=== PATIENT | female | born 1955 | race Caucasian/White ===

== ENCOUNTER 2023-02-24 12:44 | Inpatient (IN) | payer OTHER ==
[2023-02-24 15:48] VITALS: BMI 25.0
[2023-02-24] MEDS ORDERED: guaiFENesin 600 MG TABLET.ER (FP) PO PRN (16:34)
[2023-02-24] MEDS ORDERED: NALOXONE HCL 0.4 MG/ML VIAL IM PRN (16:34)
[2023-02-24] MEDS ORDERED: BENZOCAINE/MENTHOL (CHLORASEPTIC ) LOZENGE MM PRN (16:34)
[2023-02-24] MEDS ORDERED: MAG HYDROX/AL HYDROX/SIMETH 30 ML UNIT-DOSE CUP PO PRN (16:34)
[2023-02-24] MEDS ORDERED: NALOXONE HCL (KLOXXADO) 8 MG SPRAY NS PRN (16:34)
[2023-02-24] MEDS ORDERED: POLYETHYLENE GLYCOL (HEALTHYLAX) 3350 17 GM PACKET PO PRN (16:34)
[2023-02-24] MEDS ORDERED: ACETAMINOPHEN 325 MG TABLET (FP) PO PRN (16:34)
[2023-02-24] MEDS ORDERED: AMMONIUM LACTATE 12% LOTION 225 GM BOTTLE TP PRN (16:34)
[2023-02-24] MEDS ORDERED: COLLOIDAL OATMEAL 1 BAR EACH TP PRN (16:34)
[2023-02-24] MEDS ORDERED: BENZONATATE 200 MG CAPSULE PO PRN (16:34)
[2023-02-24] MEDS ORDERED: MAGNESIUM HYDROX 2400MG/30ML ORAL SUSPENSION 30 ML CUP PO PRN (16:34)
[2023-02-24] MEDS ORDERED: IBUPROFEN 400 MG TABLET (FP) PO PRN (16:34)
[2023-02-24] MEDS ORDERED: LOPERAMIDE HCL 2 MG CAPSULE PO PRN (16:34)
[2023-02-24] MEDS ORDERED: TUBERCULIN PPD 5 TU/0.1ML VIAL ID ONE (17:33)
[2023-02-24] MEDS: PRENATAL VITAMINS W/ FOLIC ACID TABLET (FP) PO SCH (17:43)
[2023-02-24] MEDS ORDERED: TUBERCULIN PPD 5 TU/0.1ML SYRINGE (IN PATIENT USE ONLY) ID ONE (18:00)
[2023-02-24] MEDS: amLODIPine BESYLATE 10 MG TABLET (FP) PO SCH (19:41)
[2023-02-24] MEDS: hydrOXYzine PAMOATE 25 MG CAPSULE (FP) PO PRN (19:41)
[2023-02-24] MEDS: THIAMINE HCL 100 MG TABLET (FP) PO SCH (21:37)
[2023-02-24] MEDS ORDERED: MELATONIN 5 MG TABLETS PO SCH (22:00)
[2023-02-25] MEDS: amLODIPine BESYLATE 10 MG TABLET (FP) PO SCH (09:54)
[2023-02-25] MEDS: SERTRALINE HCL 50 MG TABLET (FP) PO SCH (09:54)
[2023-02-25] MEDS: PRENATAL VITAMINS W/ FOLIC ACID TABLET (FP) PO SCH (09:54)
[2023-02-25 15:30] LABS: HEMATOCRIT 38.8 % (32.4-45.2); HEMOGLOBIN 12.8 GM/dL (10.7-15.3); MCH 32.3 pg (25.7-33.7); MEAN CELL VOLUME 98.1 fl (80-96); MEAN PLT VOLUME 9.9 fl (7.5-11.1); PLATELET COUNT 392 10^3/uL (134-434); RBC 3.95 M/mm3 (3.60-5.2); RDW 13.7 % (11.6-15.6); WHITE BLOOD COUNT 9.5 K/mm3 (4.0-10.0)
[2023-02-25 15:38] LABS: EPI CELLS 22 /uL (0-25.1); HYALINE CASTS 3 /uL (0-3.1); PH,URINE 7.5 (5.0-8.0); URINE APPEARANCE CLEAR; URINE BACTERIA 62 /uL (0-1359); URINE BILIRUBIN NEGATIVE (NEGATIVE); URINE COLOR YELLOW; URINE GLUCOSE (UA) NEGATIVE (NEGATIVE); URINE KETONE TRACE (NEGATIVE); URINE LEUK ESTERASE 1+ (NEGATIVE); URINE NITRITE NEGATIVE (NEGATIVE); URINE PROTEIN 1+ (NEGATIVE); URINE RBC 4 /uL (0-23.9); URINE UROBILINOGEN 0.2 mg/dL (0.2-1.0); URINE WBC 19 /uL (0-25.8)
[2023-02-25 15:50] LABS: POTASSIUM 3.8 mmol/L (3.5-5.1)
[2023-02-25 15:51] LABS: CALCIUM 9.9 mg/dL (8.5-10.1)
[2023-02-25 15:52] LABS: ALBUMIN 3.8 g/dl (3.4-5.0); BLOOD UREA NITROGEN 6.8 mg/dL (7-18)
[2023-02-25 15:55] LABS: CREATININE 0.6 mg/dL (0.55-1.3)
[2023-02-25 15:56] LABS: BILIRUBIN,TOTAL 0.4 mg/dL (0.2-1); TOT PROT 7.6 g/dl (6.4-8.2)
[2023-02-25 16:16] LABS: SYPHILIS W/ RPR CONF NON-REACTIVE (NONREACTIVE)
[2023-02-25] MEDS: clonazePAM 0.5 MG ODT TABLETS SL SCH (21:47)
[2023-02-25] MEDS: THIAMINE HCL 100 MG TABLET (FP) PO SCH (21:47)
[2023-02-25] MEDS: hydrOXYzine PAMOATE 25 MG CAPSULE (FP) PO PRN (21:48)
[2023-02-25] MEDS: SUVOREXANT 10 MG TABLET PO PRN (21:49)
[2023-02-25] MEDS ORDERED: ESZOPICLONE 3 MG PO SCH (22:00)
[2023-02-26] MEDS: SERTRALINE HCL 50 MG TABLET (FP) PO SCH (09:46)
[2023-02-26] MEDS: PRENATAL VITAMINS W/ FOLIC ACID TABLET (FP) PO SCH (09:46)
[2023-02-26] MEDS: amLODIPine BESYLATE 10 MG TABLET (FP) PO SCH (09:46)
[2023-02-26] MEDS: hydrOXYzine PAMOATE 25 MG CAPSULE (FP) PO PRN ×2 (09:47→17:23)
[2023-02-26] MEDS: clonazePAM 0.5 MG ODT TABLETS SL SCH (21:31)
[2023-02-26] MEDS: THIAMINE HCL 100 MG TABLET (FP) PO SCH (21:32)
[2023-02-26] MEDS: MELATONIN 5 MG TABLETS PO SCH (21:33)
[2023-02-26] MEDS: SUVOREXANT 10 MG TABLET PO PRN (21:34)
[2023-02-27] MEDS: hydrOXYzine PAMOATE 25 MG CAPSULE (FP) PO PRN ×2 (09:54→16:36)
[2023-02-27] MEDS: PRENATAL VITAMINS W/ FOLIC ACID TABLET (FP) PO SCH (09:54)
[2023-02-27] MEDS: SERTRALINE HCL 50 MG TABLET (FP) PO SCH (09:54)
[2023-02-27] MEDS: amLODIPine BESYLATE 10 MG TABLET (FP) PO SCH (09:54)
[2023-02-27] MEDS: MELATONIN 5 MG TABLETS PO SCH (21:16)
[2023-02-27] MEDS: THIAMINE HCL 100 MG TABLET (FP) PO SCH (21:16)
[2023-02-27] MEDS: clonazePAM 0.5 MG ODT TABLETS SL SCH (21:16)
[2023-02-27] MEDS: SUVOREXANT 10 MG TABLET PO PRN (21:17)
[2023-02-28] MEDS: hydrOXYzine PAMOATE 25 MG CAPSULE (FP) PO PRN ×2 (01:17→14:23)
[2023-02-28] MEDS: PRENATAL VITAMINS W/ FOLIC ACID TABLET (FP) PO SCH (09:51)
[2023-02-28] MEDS: amLODIPine BESYLATE 10 MG TABLET (FP) PO SCH (09:51)
[2023-02-28] MEDS: SERTRALINE HCL 50 MG TABLET (FP) PO SCH (09:51)
[2023-02-28] MEDS: THIAMINE HCL 100 MG TABLET (FP) PO SCH (21:31)
[2023-02-28] MEDS: MELATONIN 5 MG TABLETS PO SCH (21:31)
[2023-02-28] MEDS: clonazePAM 0.5 MG ODT TABLETS SL SCH (21:31)
[2023-02-28] MEDS: SUVOREXANT 10 MG TABLET PO PRN (21:33)
[2023-02-28] MEDS: SUVOREXANT 15 MG TABLET PO PRN (21:33)
[2023-03-01] MEDS: hydrOXYzine PAMOATE 25 MG CAPSULE (FP) PO PRN ×3 (06:26→22:16)
[2023-03-01] MEDS: PRENATAL VITAMINS W/ FOLIC ACID TABLET (FP) PO SCH (10:28)
[2023-03-01] MEDS: amLODIPine BESYLATE 10 MG TABLET (FP) PO SCH (10:28)
[2023-03-01] MEDS: SERTRALINE HCL 50 MG TABLET (FP) PO SCH (10:28)
[2023-03-01] MEDS: SUVOREXANT 15 MG TABLET PO PRN (22:15)
[2023-03-01] MEDS: MELATONIN 5 MG TABLETS PO SCH (22:16)
[2023-03-01] MEDS: THIAMINE HCL 100 MG TABLET (FP) PO SCH (22:16)
[2023-03-01] MEDS: clonazePAM 0.5 MG ODT TABLETS SL SCH (22:16)
[2023-03-01] MEDS: IBUPROFEN 600 MG TABLET (FP) PO PRN (22:16)
[2023-03-02] MEDS: hydrOXYzine PAMOATE 25 MG CAPSULE (FP) PO PRN ×3 (06:20→22:14)
[2023-03-02] MEDS: SERTRALINE HCL 50 MG TABLET (FP) PO SCH (10:01)
[2023-03-02] MEDS: PRENATAL VITAMINS W/ FOLIC ACID TABLET (FP) PO SCH (10:01)
[2023-03-02] MEDS: amLODIPine BESYLATE 10 MG TABLET (FP) PO SCH (10:02)
[2023-03-02] MEDS: METHYL SALICYLATE/MENTHOL OINT 30 GM TUBE TP SCH ×2 (12:54→22:14)
[2023-03-02] MEDS: LIDOCAINE 5% TOPICAL PATCH TP SCH (12:55)
[2023-03-02] MEDS: IBUPROFEN 600 MG TABLET (FP) PO PRN (18:49)
[2023-03-02] MEDS: clonazePAM 0.5 MG ODT TABLETS SL SCH (22:13)
[2023-03-02] MEDS: THIAMINE HCL 100 MG TABLET (FP) PO SCH (22:13)
[2023-03-02] MEDS: MELATONIN 5 MG TABLETS PO SCH (22:13)
[2023-03-02] MEDS: LIDOCAINE PATCH REMOVAL MC SCH (22:14)
[2023-03-02] MEDS: SUVOREXANT 15 MG TABLET PO PRN (22:15)
[2023-03-03] MEDS: amLODIPine BESYLATE 10 MG TABLET (FP) PO SCH (09:51)
[2023-03-03] MEDS: PRENATAL VITAMINS W/ FOLIC ACID TABLET (FP) PO SCH (09:51)
[2023-03-03] MEDS: METHYL SALICYLATE/MENTHOL OINT 30 GM TUBE TP SCH ×2 (09:51→21:30)
[2023-03-03] MEDS: SERTRALINE HCL 50 MG TABLET (FP) PO SCH (09:51)
[2023-03-03] MEDS: LIDOCAINE 5% TOPICAL PATCH TP SCH (09:51)
[2023-03-03] MEDS: LIDOCAINE PATCH REMOVAL MC SCH (21:26)
[2023-03-03] MEDS: MELATONIN 5 MG TABLETS PO SCH (21:29)
[2023-03-03] MEDS: hydrOXYzine PAMOATE 25 MG CAPSULE (FP) PO PRN (21:29)
[2023-03-03] MEDS: THIAMINE HCL 100 MG TABLET (FP) PO SCH (21:30)
[2023-03-03] MEDS: clonazePAM 0.5 MG ODT TABLETS SL SCH (21:30)
[2023-03-03] MEDS ORDERED: SUVOREXANT 15 MG TABLET PO PRN (22:00)
[2023-03-04] MEDS ORDERED: hydrOXYzine PAMOATE 50 MG CAPSULE (FP) PO PRN (08:31)
[2023-03-04] MEDS ORDERED: hydrOXYzine PAMOATE 25 MG CAPSULE (FP) PO PRN (08:31)
[2023-03-04] MEDS: PRENATAL VITAMINS W/ FOLIC ACID TABLET (FP) PO SCH (09:43)
[2023-03-04] MEDS: METHYL SALICYLATE/MENTHOL OINT 30 GM TUBE TP SCH ×2 (09:44→21:17)
[2023-03-04] MEDS: LIDOCAINE 5% TOPICAL PATCH TP SCH (09:44)
[2023-03-04] MEDS: amLODIPine BESYLATE 10 MG TABLET (FP) PO SCH (09:45)
[2023-03-04] MEDS: SERTRALINE HCL 50 MG TABLET (FP) PO SCH (09:45)
[2023-03-04] MEDS: clonazePAM 0.5 MG ODT TABLETS SL SCH (21:13)
[2023-03-04] MEDS: THIAMINE HCL 100 MG TABLET (FP) PO SCH (21:13)
[2023-03-04] MEDS: SUVOREXANT 20 MG TABLET PO PRN (21:13)
[2023-03-04] MEDS: MELATONIN 5 MG TABLETS PO SCH (21:13)
[2023-03-04] MEDS: hydrOXYzine PAMOATE 25 MG CAPSULE (FP) PO PRN (21:15)
[2023-03-04] MEDS: LIDOCAINE PATCH REMOVAL MC SCH (22:41)
[2023-03-05] MEDS: SERTRALINE HCL 50 MG TABLET (FP) PO SCH (10:06)
[2023-03-05] MEDS: LIDOCAINE 5% TOPICAL PATCH TP SCH (10:06)
[2023-03-05] MEDS: METHYL SALICYLATE/MENTHOL OINT 30 GM TUBE TP SCH ×2 (10:06→21:15)
[2023-03-05] MEDS: amLODIPine BESYLATE 10 MG TABLET (FP) PO SCH (10:06)
[2023-03-05] MEDS: PRENATAL VITAMINS W/ FOLIC ACID TABLET (FP) PO SCH (10:06)
[2023-03-05] MEDS: SUVOREXANT 20 MG TABLET PO PRN (21:11)
[2023-03-05] MEDS: hydrOXYzine PAMOATE 25 MG CAPSULE (FP) PO PRN (21:12)
[2023-03-05] MEDS: THIAMINE HCL 100 MG TABLET (FP) PO SCH (21:13)
[2023-03-05] MEDS: clonazePAM 0.5 MG ODT TABLETS SL SCH (21:13)
[2023-03-05] MEDS: MELATONIN 5 MG TABLETS PO SCH (21:13)
[2023-03-05] MEDS: LIDOCAINE PATCH REMOVAL MC SCH (22:04)
[2023-03-06] MEDS: hydrOXYzine PAMOATE 25 MG CAPSULE (FP) PO PRN ×2 (03:00→21:15)
[2023-03-06] MEDS: SERTRALINE HCL 50 MG TABLET (FP) PO SCH (10:09)
[2023-03-06] MEDS: clonazePAM 0.5 MG ODT TABLETS SL SCH ×2 (10:09→21:12)
[2023-03-06] MEDS: amLODIPine BESYLATE 10 MG TABLET (FP) PO SCH (10:09)
[2023-03-06] MEDS: PRENATAL VITAMINS W/ FOLIC ACID TABLET (FP) PO SCH (10:10)
[2023-03-06] MEDS: LIDOCAINE 5% TOPICAL PATCH TP SCH (10:10)
[2023-03-06] MEDS: METHYL SALICYLATE/MENTHOL OINT 30 GM TUBE TP SCH ×2 (10:10→21:12)
[2023-03-06] MEDS: MELATONIN 5 MG TABLETS PO SCH (21:12)
[2023-03-06] MEDS: THIAMINE HCL 100 MG TABLET (FP) PO SCH (21:12)
[2023-03-07] MEDS: hydrOXYzine PAMOATE 25 MG CAPSULE (FP) PO PRN (03:50)
[2023-03-07 07:30] VITALS: BP 135/83; PULSE 109; RESP 18; TEMP 98.1
[2023-03-07] MEDS: PRENATAL VITAMINS W/ FOLIC ACID TABLET (FP) PO SCH (10:07)
[2023-03-07] MEDS: amLODIPine BESYLATE 10 MG TABLET (FP) PO SCH (10:07)
[2023-03-07] MEDS: SERTRALINE HCL 50 MG TABLET (FP) PO SCH (10:07)
[2023-03-07] MEDS: LIDOCAINE PATCH REMOVAL MC SCH (10:08)
[2023-03-07] MEDS: clonazePAM 0.5 MG ODT TABLETS SL SCH (10:08)
[2023-03-07] MEDS: METHYL SALICYLATE/MENTHOL OINT 30 GM TUBE TP SCH (10:08)
[2023-03-07] MEDS: LIDOCAINE 5% TOPICAL PATCH TP SCH (10:08)
== END 2023-03-07 13:00 | disposition home or self-care (01) | DRG 895 ==
LOC: YASAS 12:44 → Y5N 16:29
PROVIDERS: ADMIT Allergy & Immunology; ATTEND Psychiatry & Neurology Pain Medicine
PROC: HZ42ZZZ Group Counseling for Substance Abuse Treatment, Cognitive-Behavioral (ICD-10-PCS; principal; 2023-02-24)
DX: F10.20 Alcohol dependence, uncomplicated (principal); F14.20 Cocaine dependence, uncomplicated; F19.282 Other psychoactive substance dependence with psychoactive substance-induced sleep disorder; F12.20 Cannabis dependence, uncomplicated; F41.1 Generalized anxiety disorder; F32.A Depression, unspecified; I10 Essential (primary) hypertension; M25.512 Pain in left shoulder; W19.XXXD Unspecified fall, subsequent encounter; Z87.891 Personal history of nicotine dependence; Z28.310 Unvaccinated for COVID-19; Z28.9 Immunization not carried out for unspecified reason
CPT/HCPCS: 36415; 80053; 81003; 85027; 86780; 86803; 87811; 93005; 93010; C9803-CS; U0003; U0005